=== PATIENT | female | born 1980 | race Caucasian/White ===

== ENCOUNTER → 2016-11-11 | Outpatient (CLI) | payer BC ==
[~2016-11-11] MED LIST: HUMIRA40 MG/0.1 SQ; IBUPROFEN 800800 M1 PO; LEXAPRO 10 MG T10 M1 PO; PREDNISONE 20 M20 MG PO
== END ==
LOC: ULTRA 13:52
DX: E04.9 Nontoxic goiter, unspecified (principal)